=== PATIENT | female | born 1955 | race Caucasian/White ===

== ENCOUNTER 2022-04-29 11:38 | Emergency (ER) | payer OTHER ==
[~2022-04-29] VITALS: Ht 167.6 cm; Wt 93.0 kg
[2022-04-29] MEDS ORDERED: LOSARTAN-HCTZ1 EACH PO (12:18)
[2022-04-29] MEDS ORDERED: GLUMETZA500 MG PO (12:18)
[2022-04-29] MEDS ORDERED: SINGULAIR10 MG PO (12:19)
[2022-04-29] MEDS ORDERED: CRESTOR10 MG PO (12:19)
== END 2022-04-29 17:00 | disposition home or self-care (01) ==
LOC: ER 11:38
DX: S01.81XA Laceration without foreign body of other part of head, initial encounter (principal); W18.39XA Other fall on same level, initial encounter; Y93.89 Activity, other specified; Y92.89 Other specified places as the place of occurrence of the external cause; Y99.9 Unspecified external cause status; E11.9 Type 2 diabetes mellitus without complications; Z79.84 Long term (current) use of oral hypoglycemic drugs; I10 Essential (primary) hypertension

== ENCOUNTER 2022-05-06 07:07 | Emergency (ER) | payer OTHER ==
[~2022-05-06] VITALS: Ht 167.6 cm; Wt 93.0 kg
[~2022-05-06 07:07] MED LIST: CRESTOR10 MG PO; GLUMETZA500 MG PO; LOSARTAN-HCTZ1 EACH PO; SINGULAIR10 MG PO
== END 2022-05-06 08:44 | disposition home or self-care (01) ==
LOC: ER 07:07
DX: Z48.02 Encounter for removal of sutures (principal)

== ENCOUNTER → 2022-12-03 | Outpatient (CLI) | payer OTHER | END | disposition home or self-care (01) | LOC: RAD 13:38 | DX: S20.20XA Contusion of thorax, unspecified, initial encounter (principal) ==

== ENCOUNTER 2022-12-04 13:19 | Outpatient (CLI) | payer OTHER | END 2022-12-04 13:34 | disposition home or self-care (01) | LOC: TOM 13:19 | DX: S20.20XA Contusion of thorax, unspecified, initial encounter (principal) ==

== ENCOUNTER 2022-12-04 18:13 | Emergency (ER) | payer OTHER ==
[~2022-12-04] VITALS: Ht 167.6 cm; Wt 104.3 kg
== END 2022-12-04 22:23 | disposition home or self-care (01) ==
LOC: ER 18:13
DX: S20.212A Contusion of left front wall of thorax, initial encounter (principal); W18.30XA Fall on same level, unspecified, initial encounter; Y93.9 Activity, unspecified; Y92.9 Unspecified place or not applicable; Y99.9 Unspecified external cause status

== ENCOUNTER → 2022-12-11 | Outpatient (CLI) | payer OTHER | END | disposition home or self-care (01) | LOC: RAD 12:12 | PROVIDERS: ATTEND Physical Medicine & Rehabilitation | DX: M60.89 Other myositis, multiple sites (principal); M54.17 Radiculopathy, lumbosacral region; M70.61 Trochanteric bursitis, right hip; M70.62 Trochanteric bursitis, left hip ==

== ENCOUNTER 2025-03-07 10:43 | Outpatient (CLI) | payer OTHER | END 2025-03-07 10:48 | disposition home or self-care (01) | LOC: RAD 10:43 | DX: M54.2 Cervicalgia (principal); M54.51 Vertebrogenic low back pain ==

== ENCOUNTER 2025-04-04 10:55 | Outpatient (CLI) | payer OTHER | END 2025-04-04 11:01 | disposition home or self-care (01) | LOC: MRI 10:55 | PROVIDERS: ATTEND Physical Medicine & Rehabilitation | DX: M54.41 Lumbago with sciatica, right side (principal) | CPT/HCPCS: 72148 ==

== ENCOUNTER 2025-04-21 09:29 | Emergency (ER) | payer OTHER ==
[~2025-04-21] VITALS: Ht 160 cm; Wt 78.5 kg
[2025-04-21] MEDS ORDERED: MORPHINE SULFATE 2 MG/ML CARTRIDGE IV ONE (10:00)
[2025-04-21] MEDS ORDERED: 0.9 % SODIUM CHLORIDE 1,000 ML IV SCH (10:00)
[2025-04-21] MEDS ORDERED: ONDANSETRON HCL 2 MG/ML VIAL IV ONE (10:00)
[2025-04-21 11:00] LABS: BASO % 0.4 % (0.1-1.2); EOS # 0.03 (0.04-0.54); EOS % 0.3 % (0.7-7.0); LYMPH # 1.59 (1.18-3.74); LYMPH % 14.8 % (19.3-53.1); MEAN PLATELET VOLUME 9.40 fl (9.4-12.4); MONO # 0.50 (0.24-0.82); MONO % 4.7 % (4.7-12.5); NEUT # 8.50 (1.56-6.13); NEUT % 79.0 % (34.0-71.1); RED CELL DISTRIBUTION WIDTH 13.2 % (11.6-14.4)
[2025-04-21 11:28] LABS: ALT/SGPT 17.0 U/L (12-78); AST/SGOT 15.0 U/L (15-37); BILIRUBIN TOTAL 0.5 mg/dL (0.3-1.2); BUN CREA RATIO 31.0 (7.0-25.0); CREATININE SERUM 0.85 mg/dL (0.55-1.02); GFR 65.93; GLOBULINA 4.4 G/DL (2.4-3.5); GLUCOSE FASTING 119.0 mg/dL (65-100); OSMOLALITY SERUM 289.0 MOSM/KG (275-295)
[2025-04-21 12:21] LABS: URINE APPEARANCE Clear; URINE BILIRRUBIN Negative (NEGATIVE); URINE BLOOD Moderate; URINE COLOR Yellow; URINE GLUCOSE Negative (NEGATIVE); URINE KETONE Trace (NEGATIVE); URINE LEUKOCYTE Small; URINE NITRATE Negative; URINE PROTEIN Trace (NEGATIVE); URINE UROBILINOGEN 1.0 E.U./dl
[2025-04-21 12:22] LABS: URINE BACTERIA 601.1 uL (0.0-1933); URINE CAST 1.46 uL (0.0-1.40); URINE EPITHELIAL CELLS 17.0 uL (0.0-38.8); URINE RBC 63.2 uL (0.0-20.8); URINE WBC 34.5 uL (0.0-23.2)
[2025-04-21] MEDS ORDERED: KETO10TA2 PO (16:04)
[2025-04-21] MEDS ORDERED: TAMS0.4C PO (16:04)
== END 2025-04-21 16:13 | disposition home or self-care (01) ==
LOC: ER 09:29
PROVIDERS: Emergency Medicine
DX: R10.11 Right upper quadrant pain (principal); I10 Essential (primary) hypertension; K29.70 Gastritis, unspecified, without bleeding; N20.0 Calculus of kidney; E11.9 Type 2 diabetes mellitus without complications; Z79.84 Long term (current) use of oral hypoglycemic drugs; K44.9 Diaphragmatic hernia without obstruction or gangrene